=== PATIENT | male | born 1960 | race Caucasian/White ===

== ENCOUNTER 2018-05-11 13:52 | Outpatient (CLI) | payer BC ==
[2018-05-11 15:30] LABS: Hemoglobin 14.6 g/dL (14.0-18.0); Mean Corpuscular HGB CONC 34.3 g/dL (32.0-36.0); Mean Corpuscular Hemoglobin 31.5 pg (27.0-31.0); Mean Corpuscular Volume 91.9 fl (80.0-94.0); Mean Platelet Volume 7.5 fL (7.4-10.4); Platelet Count 246 thou/uL (130-400); RBC Distribution Width 11.7 % (11.5-14.5); Red Blood Cell (RBC) Count 4.62 mill/uL (4.70-6.10); White Blood Cell (WBC) Count 8.6 thou/uL (4.8-10.8)
[2018-05-11 15:34] LABS: INR-International Normal Ratio 1.2; PTT 33.2 SEC (22.9-36.1); Prothrombin Time 15.7 SEC (12.0-14.7)
[2018-05-11 15:47] LABS: Anion Gap 13 mmol/L (10-20); BUN (Urea Nitrogen) 13 mg/dL (8.4-25.7); Calc. Creatinine Clearance 0 mL/min (70-130); Calcium 9.7 mg/dL (7.8-10.44); Carbon Dioxide 27 mmol/L (22-29); Chloride 104 mmol/L (98-107); Estimated GFR-MDRD Greater than 90; Glucose 101 mg/dL (70-105); Potassium 4.4 mmol/L (3.5-5.1); Sodium 140 mmol/L (136-145)
== END 2018-05-11 13:53 | disposition home or self-care (01) ==
LOC: LABBT 13:52
PROVIDERS: ATTEND Neurological Surgery
DX: Z01.818 Encounter for other preprocedural examination (principal); M48.061 Spinal stenosis, lumbar region without neurogenic claudication; M71.30 Other bursal cyst, unspecified site; Z88.2 Allergy status to sulfonamides
CPT/HCPCS: 80048; 85027; 85610; 85730

== ENCOUNTER 2018-05-20 10:23 | Day surgery (SDC) | payer BC ==
[2018-05-11 14:28] VITALS: BMI 35.5
--- NOTE | 2018-05-12 14:32 | HP ---
CHIEF COMPLAINT: Low back pain and leg numbness. HISTORY OF PRESENT ILLNESS: This is a 57-year-old male with extensive past medical history of cardio vascular disease, hypertension, stent placement, cardiovascular accident in 2002, 2 previous lumbar s urgeries who reports to the office today for evaluation of left leg numbness. The patient states lon t over the last year, the numbness has progressively gotten worse. It starts in his foot and if he w alks for more than 5 minutes, his whole leg will become numb. He states that it feels like a U-shape under his groin, down his left leg which all becomes numb. Recently he has started to have similar symptoms on the right side. The patient denies any bowel or bladder issues. He has tried epidural s teroid injections with some relief and it will take more activity for his leg to become fully numb af ter the injection. The patient states that this is not very painful and that it is different from hi s previous back injuries. He feels that his previous back surgeries fixed the problem they intended to; however, this is a new issue. The patient has been taking gabapentin which has helped him sleep, but he has noticed any benefit for his numbness. REVIEW OF SYSTEMS: A 10 point review of systems is complete and is otherwise negative unless stated above in the HPI. PAST MEDICAL HISTORY: Gout, hypercholesterolemia, GERD, hypertension, BPH, and CVA. PAST SURGICAL HISTORY: Left TKR and revision in 01/2017, microdiskectomy in 1997, hemilaminotomy L4- L5 Dr. Lane in 2002, stent, right coronary 2002, Achilles 2010, chronic total occlusion in 2016. HOSPITALIZATIONS: Hospitalizations for above surgeries. FAMILY HISTORY: Father is alive, diagnosed with hypertension and stroke. Mother is alive, diagnosed with hypertension and cancer. Siblings are alive and diagnosed with diabetes. He has a daughter th at is alive. SOCIAL HISTORY: The patient is a former smoker, quit in 2010, 1 pack a day. The patient drinks alco hol daily. No other drug issues. The patient is sexually active. Drinks caffeine daily 1-2 cups. He is a retired and [employer] worker. The patient is . MEDICATIONS: Rosuvastatin, Uloric, pantoprazole, hydrochlorothiazide, lisinopril, metoprolol, Celeco xib, Cialis, gabapentin, levothyroxine. ALLERGIES: SULFASALAZINE. PHYSICAL EXAMINATION: CONSTITUTIONAL: Well-appearing, well-nourished, alert. NEUROLOGICAL: Mental status, oriented to time, place and person. Normal attention span, concentrati on. Speech is spontaneous and fluent, comprehension intact. Content appropriate, normal fund of chino powellreji. Cranial nerves: Pupils round, reactive to light. Extraocular movements intact. Hearing i ntact. Motor muscle strength normal in the lower extremities. Muscle tone and bulk normal in lower extremities, 5/5 bilateral strength in IP, KE, KF, VF, EHL, negative single leg raise bilateral, rota tion of bilateral hips normal. Deep tendon reflexes increased patellar bilaterally, decreased ankle bilaterally. Sensory: Decreased on left leg worse, most distal. Gait and station sit to stand is n ormal, normal walking. RESPIRATORY: Normal work of breathing on room air. SKIN: No rashes or lesions on exposed skin. PSYCHIATRIC: Normal mood and affect. IMAGING: L3-L4 central stenosis. Left synovial cyst at L3-4. ASSESSMENT: 1. Spinal stenosis of lumbar region with neurogenic claudication. 2. Synovial cyst of lumbar spine. 3. Lumbar back pain with radiculopathy. PLAN: Dr. Brennan has offered laminectomy of L3-4 with removal of left synovial cyst. Informed co nsent; we discussed the indications, risks and benefits, and alternatives of the surgery. The risks discussed include, but are not limited to bleeding, infection, CSF leak, nerve damage, weakness, caud a equina injury, incontinence, arachnoiditis, paralysis, ventilator dependence, wheelchair dependence , loss of vision, cardiopulmonary complications of anesthesia or . Long-term complications were discussed, but not limited to spinal instability and future surgery. The patient understands the ri sks and is willing to proceed with surgery.
[2018-05-20] MEDS ORDERED: CEFAZOLIN/Water 2 GM/20 ML SYRINGE ONE (11:22)
[2018-05-20] MEDS ORDERED: Scopolamine 1.5 mg/72 hour Patch ONE (11:55)
[2018-05-20] MEDS ORDERED: Sodium Chloride 0.9% 20 ML ONE (13:15)
[2018-05-20] MEDS ORDERED: Thrombin 5000 UNITS/5 ML VIAL ONE (13:15)
[2018-05-20] MEDS ORDERED: Bupivacaine HCl 0.5%/Epinephrine 1:200,000/PF 30 ml Vial ONE (13:15)
[2018-05-20] MEDS ORDERED: Midazolam HCl 2 mg/2 ml Vial ONE (13:23)
[2018-05-20] MEDS ORDERED: Fentanyl 100 MCG/2 ML VIAL ONE ×2 (13:25→16:18)
[2018-05-20] MEDS ORDERED: Dexamethasone 20 MG/5 ML VIAL ONE (15:29)
[2018-05-20] MEDS ORDERED: Glycopyrrolate 0.2 MG/ML 5 ML SYRINGE ONE (15:29)
[2018-05-20] MEDS ORDERED: Metoclopramide HCl 10 MG/2 ML VIAL ONE (15:29)
[2018-05-20] MEDS ORDERED: PROPOFOL 200 MG/20 ML VIAL ONE (15:29)
[2018-05-20] MEDS ORDERED: Ondansetron HCl/PF 4 MG/2 ML Vial ONE (15:29)
[2018-05-20] MEDS ORDERED: PHENYLEPHRINE-NS 100 MCG/ML 10 ML SYRINGE ONE (15:29)
[2018-05-20] MEDS ORDERED: Lidocaine 1% PF 5 ML VIAL ONE ×2 (15:29)
[2018-05-20] MEDS ORDERED: Promethazine 25 MG TAB PO PRN (16:10)
[2018-05-20] MEDS ORDERED: diphenhydrAMINE 50 MG/ML VIAL IVP PRN (16:10)
[2018-05-20] MEDS ORDERED: Ondansetron HCl/PF 4 MG/2 ML Vial IVP PRN (16:10)
[2018-05-20] MEDS ORDERED: Acetaminophen/Codeine 30-300mg Tablet PO PRN ×2 (16:10)
[2018-05-20] MEDS ORDERED: Promethazine HCl 12.5 MG SUPP PR PRN (16:10)
[2018-05-20] MEDS ORDERED: Promethazine HCl 25 MG/ML VIAL IM PRN (16:10)
[2018-05-20] MEDS ORDERED: tiZANidine HCl 4 MG TAB PO PRN (16:10)
[2018-05-20] MEDS ORDERED: diphenhydrAMINE 25 MG CAP PO PRN (16:10)
[2018-05-20] MEDS ORDERED: Morphine 4 MG/ML VIAL SLOW IVP PRN (16:10)
[2018-05-20] MEDS ORDERED: HYDROcodone/Acetaminophen 5/325 mg Tablet ONE (19:29)
[2018-05-20] MEDS ORDERED: CEFAZOLIN/Water 2 GM/20 ML SYRINGE SLOW IVP SCH (20:00)
--- NOTE | 2018-05-20 23:36 | OP ---
DATE OF SURGERY: 05/20/2018 SURGEON: Julia Brennan MD [employer] WORKER: Carmen Raphael PA-C PREOPERATIVE INDICATION: Treat pain, prevent neurological deterioration. PREOPERATIVE DIAGNOSES: Prior lumbar surgery, lumbar spinal stenosis with neurogenic claudication, l eft-sided L3-L4 synovial cyst. POSTOPERATIVE DIAGNOSES: Prior lumbar surgery, lumbar spinal stenosis with neurogenic claudication, left-sided L3-L4 synovial cyst. OPERATIVE PROCEDURE: Decompressive laminectomy, medial facetectomy, foraminotomy at L3-L4 and a redo decompressive laminectomy, medial facetectomy, foraminotomy at L4-L5, synovial cyst resection. PREOPERATIVE MEDICATION: Ancef 2 grams IV. DRAIN NUMBER: Zero. DRAIN TYPE: None. OPERATIVE DICTATION: The patient was brought to the operating room. General endotracheal anesthesia was induced. The patient was positioned prone on the operating table with his chest and hips suppor paul by gel-filled chest rolls. A lateral fluoro radiograph was used to confirm the previous incision would give us access to L3, L4, and L5 segments of the lumbosacral spine. The lumbar skin was steri nathalie prepped and draped. We opened our incision with a 10-blade knife and controlled bleeding with b ipolar and monopolar cautery. We used monopolar cautery to dissect through subcutaneous tissues to t he thoracodorsal fascia. We incised the fascia in the midline and reflected the paraspinal muscles o ff the spinous process and lamina of L3-L4, used Tafoya periosteal elevators to develop a plane over th e L4 lamina all the way out to the facet joints both at L3-L4 and L4-L5. Self-retaining retractors w ere placed and a lateral fluoro radiograph confirmed the levels upon which we were operating. We the n scar tissue from the inferior portion of the lamina of L4. Using Kerrison rongeur, we fa shioned a laminectomy including entire remnant of L4 and the inferior 3/4 of the lamina of L3. We wi dened our laminectomy defect until we were flush with the L3, L4, and L5 pedicles. We identified the L4 nerve root as it traversed the lateral recess and out the foramen on either side and made sure th at the foramina were widely decompressed. At L4-L5, we dissected through scar tissue until we could identify the L5 nerve roots. We freed these in the lateral recess and out the foramen as well. During the course of decompression of L3 and L4, we encountered a synovial cyst on the left side of t he posterior epidural space. We removed it in a piecemeal fashion and came out without complication. Once we had secured our decompression, we used gentle bipolar cautery to control epidural veins. We waxed the bone edges. We irrigated copiously with bacitracin irrigation. We infused local anestheti c in all the paraspinal muscles. We closed the wound in anatomic layers after vancomycin powder was administered. We applied a sterile dressing. This was a clean case and no contamination.
== END 2018-05-20 20:00 | disposition home or self-care (01) ==
LOC: SDC 10:23
PROVIDERS: ATTEND Neurological Surgery
PROC: 01NB0ZZ Release Lumbar Nerve, Open Approach (ICD-10-PCS; principal; 2018-05-20)
DX: M48.062 Spinal stenosis, lumbar region with neurogenic claudication (principal); M71.38 Other bursal cyst, other site; M54.16 Radiculopathy, lumbar region; E78.00 Pure hypercholesterolemia, unspecified; K21.9 Gastro-esophageal reflux disease without esophagitis; M10.9 Gout, unspecified; N40.0 Benign prostatic hyperplasia without lower urinary tract symptoms; Z87.891 Personal history of nicotine dependence; Z79.899 Other long term (current) drug therapy; Z88.2 Allergy status to sulfonamides
CPT/HCPCS: 76001; A4216; J0131; J0670; J1100; J2001; J2250; J2405; J2704; J2765; J3010; J3370; J3490